=== PATIENT | male | born 1955 | race Two or more races ===

== ENCOUNTER 2017-01-16 19:52 | Emergency (ER) | payer BC ==
[2017-01-16] MEDS ORDERED: 0.9 % SODIUM CHLORIDE 1,000 ML BAG IV ONE (20:57)
[2017-01-16] MEDS ORDERED: PROMETHAZINE HCL 25 MG/ML VIAL IVP ONE (20:57)
[2017-01-16] MEDS ORDERED: HYDROMORPHONE HCL 1 MG/ML CPJ IVP ONE ×3 (20:57→23:32)
[2017-01-16 21:43] LABS: BASO % 0.2 % (0-6); EOS % 4.3 % (0-6); GRAN % 56.5 % (47-80); HEMATOCRIT 43.9 % (42.0-52.0); HEMOGLOBIN 14.7 gm/dl (14.0-18.0); MEAN CELL VOLUME 89.2 fl (81-97); MEAN CORPUSCULAR HEMOGLOBIN 29.9 pg (27-33); MEAN CORPUSCULAR HGB CONC 33.5 g/dl (32-36); MEAN PLATELET VOLUME 9.5 fl (7.4-10.4); PLATELET COUNT 239 K/uL (130-400); RED BLOOD COUNT 4.92 M/uL (4.40-5.70); RED CELL DISTRIBUTION WIDTH 12.5 % (11.5-14.5); WHITE BLOOD COUNT W/O DIFF 6.3 K/uL (4.2-12.2)
[2017-01-16 21:54] LABS: ANION GAP 9.2 (7-16); BLOOD UREA NITROGEN 11 mg/dL (9-20); CARBON DIOXIDE 28.8 mmol/L (22-30); CREATININE 0.8 mg/dL (0.66-1.25); EST GLOMERULAR FILTRATION RATE > 60 ml/min; GLUCOSE,RANDOM 129 mg/dL (70-110)
[2017-01-16] MEDS ORDERED: KETOROLAC 30 MG/ML VIAL IVP ONE (22:24)
--- NOTE | 2017-01-16 22:36 | Emergency Department Record ---
History of Present Illness - General Chief Complaint: Headache Migraine Stated Complaint: GOODMAN Time Seen by Provider: 01/16/17 20:17 Source: Patient Mode of Arrival: Ambulatory Limitations: No limitations - History of Present Illness Initial Comments: pt is having typical migraine. MD Complaint: "Migraine" Onset/Timin -: Days(s) Onset Description: Gradual Location: Diffuse Severity scale (1-10): 9 Quality: Similar to previous headaches Consistency: Constant Improves With: Nothing Worsens With: Light, Noise Associated Symptoms: Nausea, Photophobia, Sensitivity to sound Treatments Prior to Arrival: Migraine medication - Related Data Home Medications Medication Instructions Recorded Confirmed Last Taken Amlodipine Besylate #90 04/17/16 Unknown Ergocalciferol (Vitamin D2) #13 04/17/16 Unknown [Vitamin D2] Ezetimibe [Zetia] #90 04/17/16 Unknown Hydrocodone/Ibuprofen #60 04/17/16 Unknown [Hydrocodone-Ibuprofen 7.5-200] Omeprazole #90 04/17/16 Unknown Promethazine HCl [Phenergan] #120 04/17/16 Unknown Tramadol HCl #30 04/17/16 Unknown Allergies Allergy/AdvReac Type Severity Reaction Status Date / Time acetaminophen Allergy Severe ELEVATED Verified 01/16/17 20:18 LIVER ENZYMES Sulfa (Sulfonamide Allergy Severe HIVES Verified 01/16/17 20:18 Antibiotics) Travel Screening - Travel/Exposure Within Last 30 Days Have you traveled within the last 30 days?: No - Travel Symptoms Symptom Screening: None Review of Systems Reviewed: No additional complaints except as noted below Constitutional: Reports: As per HPI. Denies: Chills, Fever, Malaise, Night sweats, Weakness, Weight change Eyes: Reports: As per HPI. Denies: Eye discharge, Eye pain, Photophobia, Vision change ENT: Reports: As per HPI. Denies: Congestion, Dental pain, Ear pain, Epistaxis , Hearing loss, Throat pain Respiratory: Reports: As per HPI. Denies: Cough, Dyspnea, Hemoptysis, Stridor, Wheezes Cardiovascular: Reports: As per HPI. Denies: Arrhythmia, Chest pain, Dyspnea on exertion, Edema, Murmurs, Orthopnea, Palpitations, Paroxysmal nocturnal dyspnea, Rheumatic Fever, Syncope Endocrine: Reports: As per HPI. Denies: Fatigue, Heat or cold intolerance, Polydipsia, Polyuria Gastrointestinal: Reports: As per HPI. Denies: Abdominal pain, Constipation, Diarrhea, Hematemesis, Hematochezia, Melena, Nausea, Vomiting Genitourinary: Reports: As per HPI. Denies: Dysuria, Frequency, Hematuria, Incontinence, Retention, Testicular pain, Testicular mass, Urgency Musculoskeletal: Reports: As per HPI. Denies: Arthralgia, Back pain, Gout, Joint swelling, Myalgia, Neck pain Skin: Reports: As per HPI. Denies: Bruising, Change in color, Change in hair/ nails, Lesions, Pruritus, Rash Neurological: Reports: As per HPI. Denies: Abnormal gait, Confusion, Headache, Numbness, Paresthesias, Seizure, Tingling, Tremors, Vertigo, Weakness Psychiatric: Reports: As per HPI. Denies: Anxiety, Auditory hallucinations, Depression, Homicidal thoughts, Suicidal thoughts, Visual hallucinations Hematological/Lymphatic: Reports: As per HPI. Denies: Anemia, Blood Clots, Easy bleeding, Easy bruising, Swollen glands Past Medical History - SOCIAL HISTORY Smoking Status: Never smoker - CARDIOVASCULAR Hx Cardio Disorders: Yes Hx Hypertension: Yes - NEURO Hx Neuro Disorders: Yes Hx Headaches: Yes - GI Hx GI Disorders: Yes Hx Reflux: Yes Hx Liver Disease: (elevated Liver enzymes) - Hx Genitourinary Disorders: Yes Hx Kidney Stones: Yes - ENDOCRINE Hx Endocrine Disorders: No - MUSCULOSKELETAL Hx Musculoskeletal Disorders: Yes Hx Arthritis: Yes - PSYCH Hx Psych Problems: No - HEMATOLOGY/ONCOLOGY Hx Hematology/Oncology Disorders: No Family Medical History Any Significant Family History?: Yes Hx Cancer: Father Hx Diabetes: Mother Physical Exam - General General Appearance: Alert, Oriented x3, Cooperative, Mild distress - Head Head exam: Normal inspection - Eye Eye exam: Normal appearance, PERRL, EOMI Pupils: Normal accommodation - ENT ENT exam: Normal exam, Mucous membranes moist, Normal external ear exam, Normal orophraynx Ear exam: Normal external inspection. negative: External canal tenderness Nasal Exam: Normal inspection. negative: Discharge, Sinus tenderness Mouth exam: Normal external inspection, Tongue normal Teeth exam: Normal inspection. negative: Dental caries Throat exam: Normal inspection. negative: Tonsillar erythema, Tonsillar exudate - Neck Neck exam: Normal inspection, Full ROM. negative: Tenderness - Respiratory Respiratory exam: Normal lung sounds bilaterally. negative: Respiratory distress - Cardiovascular Cardiovascular Exam: Regular rate, Normal rhythm, Normal heart sounds - GI/Abdominal GI/Abdominal exam: Soft, Normal bowel sounds. negative: Tenderness - Rectal Rectal exam: Deferred - exam: Deferred - Extremities Extremities exam: Normal inspection, Full ROM, Normal capillary refill. negative: Tenderness - Back Back exam: Reports: Normal inspection, Full ROM. Denies: Muscle spasm, Rash noted, Tenderness - Neurological Neurological exam: Alert, CN II-XII intact, Normal gait, Oriented X3 - Psychiatric Psychiatric exam: Normal affect, Normal mood - Skin Skin exam: Dry, Intact, Normal color, Warm Course Vital Signs 01/16/17 01/16/17 20:18 22:22 Temperature 98.7 F Pulse Rate [ 72 68 Pulse Ox Probe] Respiratory 18 18 Rate Blood Pressure 149/105 [Left Arm] Blood Pressure 141/91 [Right Arm] Pulse Ox 98 94 L Medical Decision Making - Lab Data Result diagrams: 01/16/17 21:39 01/16/17 21:39 Lab Results 01/16/17 01/16/17 Range/Units 21:39 21:39 WBC 6.3 (4.2-12.2) K/uL RBC 4.92 (4.40-5.70) M/uL Hgb 14.7 (14.0-18.0) gm/dl Hct 43.9 (42.0-52.0) % MCV 89.2 (81-97) fl MCH 29.9 (27-33) pg MCHC 33.5 (32-36) g/dl RDW 12.5 (11.5-14.5) % Plt Count 239 (130-400) K/uL MPV 9.5 (7.4-10.4) fl Gran % 56.5 (47-80) % Lymphocytes % 30.0 (16-45) % Monocytes % 9.0 (0-9) % Eosinophils % 4.3 (0-6) % Basophils % 0.2 (0-6) % Sodium 139 (136-145) mmol/L Potassium 3.4 L (3.5-5.1) mmol/L Chloride 101 (98-107) mmol/L Carbon Dioxide 28.8 (22-30) mmol/L Anion Gap 9.2 (7-16) BUN 11 (9-20) mg/dL Creatinine 0.8 (0.66-1.25) mg/dL Estimated GFR > 60 ml/min Random Glucose 129 H (70-110) mg/dL Calcium 8.8 (8.5-10.1) mg/dL Disposition Disposition: Discharge Clinical Impression: Migraine Qualifiers: Migraine type: unspecified Status migrainosus presence: with status migrainosus Intractability: intractable Qualified Code(s): G43.911 - Migraine, unspecified, intractable, with status migrainosus Condition: (1) Good Instructions: Migraine Headache (ED) Additional Instructions: follow up with family doctor and with neurologist. return sooner if worse. Forms: Patient Portal Access
[2017-01-17] MEDS ORDERED: DIPHENHYDRAMINE HCL IV 50 MG/ML VIAL IVP ONE (00:22)
== END 2017-01-17 00:38 | disposition home or self-care (01) ==
LOC: ER 19:52
DX: G43.911 Migraine, unspecified, intractable, with status migrainosus (principal); R11.0 Nausea; H53.149 Visual discomfort, unspecified
CPT/HCPCS: 99284 ×2; 96376; 96374; 96375; 85025; 80048; 70450; J1885; J1170; J1200; J2550; J7030

== ENCOUNTER 2017-02-21 14:16 | Day surgery (SDC) | payer BC ==
[~2017-02-21 14:16] MED LIST: LIDOCAINE 2% MDV (20MG/ML) 20ML VIAL IV ONE; MIDAZOLAM HCL 2MG/2ML VIAL IV ONE; PROPOFOL 10 MG/ML VIAL IV ONE
--- NOTE | 2017-02-26 09:50 | Operative Note ---
DATE OF SURGERY: 02/21/2017 OPERATION: COLONOSCOPY with cold forceps polypectomy x2. PREOPERATIVE DIAGNOSIS: Colon polyps in followup. POSTOPERATIVE DIAGNOSES: 1. Internal and external hemorrhoids. 2. Ascending colon polyp. 3. Descending colon polyp. ESTIMATED BLOOD LOSS: Minimal. PREPARATION QUALITY: Good. COMPLICATIONS: None apparent. SPECIMENS: Ascending colon polyp and descending colon polyp. PROCEDURE: After informed consent was obtained from the patient, he was placed in the left lateral decubitus position in the endoscopy suite, sedated and monitored by the department of anesthesia. Digital rectal examination was unremarkable. A well-lubricated [id number] colonoscope was inserted into the rectum and advanced to the cecum. Preparation quality was good. The cecum, ileocecal valve, and appendiceal orifice were unremarkable. The ascending colon revealed a 4-5 mm polyp which was removed with a cold forceps. Minimal bleeding was noted. The remainder of the ascending colon and transverse colon were unremarkable. There was a 5 mm descending colon polyp identified and removed with a cold forceps. Minimal bleeding was noted. The remainder of the descending colon and sigmoid colon were unremarkable. Forward views of the rectum and anorectum were unremarkable. J-turn views revealed internal and external hemorrhoids. These were of moderate size. The endoscope was then straightened, the rectal ampulla deflated, and the endoscope was removed. RECOMMENDATIONS: The patient will require repeat exam in 3-5 years pending tissue histology. As always, thank you for allowing me to participate in the healthcare of your patients. CC: Dr. Amy HU
== END 2017-02-21 15:56 | disposition home or self-care (01) ==
LOC: HOP 14:16
PROVIDERS: ATTEND Internal Medicine Gastroenterology
DX: Z12.11 Encounter for screening for malignant neoplasm of colon (principal); D12.2 Benign neoplasm of ascending colon; D12.4 Benign neoplasm of descending colon; K64.4 Residual hemorrhoidal skin tags; K64.8 Other hemorrhoids; I10 Essential (primary) hypertension; E78.00 Pure hypercholesterolemia, unspecified

== ENCOUNTER 2017-10-29 19:11 | Emergency (ER) | payer BC ==
--- NOTE | 2017-10-29 19:36 | Emergency Department Record ---
History of Present Illness - General Chief Complaint: Back Pain/Injury Stated Complaint: LOWER BACK PAIN RADIATING DOWN BOTH LEGS Time Seen by Provider: 10/29/17 19:12 Source: Patient Mode of Arrival: Wheelchair Limitations: No limitations - History of Present Illness Initial Comments: 61 yo male presents to ED for evaluation of back pain symptoms and lower extremity weakness symptoms for the past 6 hours. Patient denies history of low back pain symptoms previously, denies injury. Patient denies numbness over the groin region or urinary retention symptoms. Patient denies history of previous back surgery, and denies history of IVDA. Patient reports recent URI symptoms with mild cough, denies health problems at his baseline. Onset/Timin -: Hour(s) Similar Symptoms Previously: Yes Place: Home Radiation: None Severity scale (1-10): 7 Quality: Aching Consistency: Constant Improves With: Supine Worsens With: Walking Context: Unknown Associated Symptoms: Cough, Difficulty walking, Weakness - Related Data Home Medications Medication Instructions Recorded Confirmed Last Taken Propranolol HCl [Inderal Xl] 80 mg PO DAILY 10/29/17 10/29/17 Unknown Allergies Allergy/AdvReac Type Severity Reaction Status Date / Time acetaminophen Allergy Severe ELEVATED Verified 01/16/17 20:18 LIVER ENZYMES Sulfa (Sulfonamide Allergy Severe HIVES Verified 01/16/17 20:18 Antibiotics) Travel Screening - Travel/Exposure Within Last 30 Days Have you traveled within the last 30 days?: No Review of Systems Constitutional: Denies: Chills, Fever, Malaise, Night sweats Eyes: Denies: Eye discharge, Eye pain ENT: Denies: Congestion, Ear pain, Epistaxis Respiratory: Reports: Cough. Denies: Dyspnea, Hemoptysis Cardiovascular: Denies: Chest pain, Dyspnea on exertion Endocrine: Denies: Fatigue, Heat or cold intolerance Gastrointestinal: Denies: Abdominal pain, Nausea, Vomiting Genitourinary: Denies: Incontinence, Retention Musculoskeletal: Reports: Back pain. Denies: Arthralgia, Gout, Joint swelling Skin: Denies: Bruising, Change in color Neurological: Reports: Weakness. Denies: Confusion, Headache, Numbness, Seizure , Tingling Psychiatric: Denies: Anxiety Hematological/Lymphatic: Denies: Anemia, Blood Clots Past Medical History - SOCIAL HISTORY Smoking Status: Never smoker Alcohol Use: None Drug Use: None - RESPIRATORY Hx Respiratory Disorders: Yes Hx Asthma: Yes (mild-uses inhaler) Hx Sleep Apnea: Yes Hx of CPAP: Yes - CARDIOVASCULAR Hx Cardio Disorders: Yes Hx Hypertension: Yes - NEURO Hx Neuro Disorders: Yes Hx Headaches: Yes Hx of Migraines: Yes - GI Hx GI Disorders: Yes Hx Reflux: Yes Hx Liver Disease: Yes (elevated Liver enzymes) Hx Rectal Bleeding: Yes (+ hemoccult) - Hx Genitourinary Disorders: Yes Hx Kidney Stones: Yes - ENDOCRINE Hx Endocrine Disorders: No - MUSCULOSKELETAL Hx Musculoskeletal Disorders: Yes Hx Arthritis: Yes - PSYCH Hx Psych Problems: No - HEMATOLOGY/ONCOLOGY Hx Hematology/Oncology Disorders: No Family Medical History Any Significant Family History?: Yes Hx Cancer: Father Hx Diabetes: Mother Physical Exam - General General Appearance: Alert, Oriented x3, Cooperative, Moderate distress Limitations: No limitations - Head Head exam: Atraumatic, Normocephalic, Normal inspection Head exam detail: negative: Abrasion, Contusion, Mauro's sign, General tenderness, Hematoma, Laceration - Eye Eye exam: Normal appearance. negative: Conjunctival injection, Periorbital swelling, Periorbital tenderness, Scleral icterus - ENT Ear exam: negative: Auricular hematoma, Auricular trauma Nasal Exam: negative: Active bleeding, Discharge, Dried blood, Foreign body Mouth exam: negative: Drooling, Laceration, Muffled voice, Tongue elevation - Neck Neck exam: Normal inspection. negative: Meningismus, Tenderness - Respiratory Respiratory exam: Normal lung sounds bilaterally. negative: Rales, Respiratory distress, Rhonchi, Stridor - Cardiovascular Cardiovascular Exam: Regular rate, Normal rhythm, Normal heart sounds - GI/Abdominal GI/Abdominal exam: Soft. negative: Rebound, Rigid, Tenderness - Rectal Rectal exam: Deferred - exam: Deferred - Extremities Extremities exam: Normal inspection. negative: Calf tenderness, Pedal edema, Tenderness - Back Back exam: Reports: Paraspinal tenderness (TTP in the midline of the lumbar spine). Denies: CVA tenderness (R), CVA tenderness (L) - Neurological Neurological exam: Alert, Motor sensory deficit (3+ strength bilateral EHL), Oriented X3 - Psychiatric Psychiatric exam: Normal affect, Normal mood - Skin Skin exam: Normal color. negative: Abrasion Type of lesion: negative: abrasion Course Vital Signs 10/29/17 19:13 Temperature 99.4 F Pulse Rate 95 H Respiratory 18 Rate Blood Pressure 156/122 Pulse Ox 99 - Reevaluation(s) Reevaluation #1: 10/29/17 19:35 Case was discussed [address] Dr. Larsen ([facility] ED), will accept patient for transfer and possible MRI given the patient's lower extremity weakness and back pain symptoms. Patient agrees with the plan as discussed. Disposition Disposition: Transfer Clinical Impression: Low back pain Qualifiers: Chronicity: acute Back pain laterality: unspecified Sciatica presence: without sciatica Qualified Code(s): M54.5 - Low back pain Lower extremity weakness Qualifiers: Laterality: unspecified laterality Qualified Code(s): R29.898 - Other symptoms and signs involving the musculoskeletal system Disposition: Acute Care Hospital Transfer Transfer To: [facility] Reason For Transfer: MRI, further evaluation Accepting Physician: Chava Time Discussed w/Accepting Physician: 19:36 Condition: (2) Stable Forms: Patient Portal Access Time of Disposition: 19:36 Quality - Quality Measures Quality Measures: N/A - Blood Pressure Screening Does Patient Have Any of the Following: No Blood Pressure Classification: Pre-Hypertensive BP Reading Systolic Measurement: 133 Diastolic Measurement: 84 Screening for High Blood Pressure: < Pre-Hypertensive BP, F/U Documented > [ [id number]] Pre-Hypertensive Follow-up Interventions: Referral to alternative/primary care provider.
[2017-10-29] MEDS ORDERED: ONDANSETRON HCL IV 4 MG/2 ML VIAL IVP ONE (19:39)
[2017-10-29] MEDS ORDERED: MORPHINE SULFATE 5 MG/ML PFS IVP ONE (19:39)
[2017-10-29] MEDS ORDERED: 0.9 % SODIUM CHLORIDE 1000ML 1,000 ML IV SCH (19:45)
[2017-10-29] MEDS ORDERED: FENTANYL PF 100MCG/2ML VIAL IVP ONE (20:10)
== END 2017-10-29 20:26 | disposition short-term general hospital (02) ==
LOC: ER 19:11
DX: M54.5 Low back pain (principal); R29.898 Other symptoms and signs involving the musculoskeletal system; R26.2 Difficulty in walking, not elsewhere classified; R05 Cough; I10 Essential (primary) hypertension
CPT/HCPCS: 99285 ×2; 96374; 96375; J2405; J3010; J2270; J7030

== ENCOUNTER 2018-06-08 11:52 | Observation (INO) | payer BC ==
--- NOTE | 2018-06-08 12:15 | Emergency Department Record ---
History of Present Illness - General Chief Complaint: Abdominal Pain Stated Complaint: LOWER ABD PAIN Time Seen by Provider: 06/08/18 12:09 Source: Patient Mode of Arrival: Ambulatory Limitations: No limitations - History of Present Illness Initial Comments: The patient is here due to the acute onset of lower AP for the last 2 hours. The pain is sharp, stabbing, and intermittent. He has been mildly nauseated with it but did not vomit. The patient also states he tried to have a BM but was not successful. Presently the pain is improving. He has no hx of similar issues and no hx of any abdominal surgeries. The patient also denied having any CP, SOB, or RUSSELL. MD Complaint: Abdominal pain Onset/Timin -: Hour(s) Location: Periumbilical Radiation: Suprapubic Severity: Moderate Quality: Aching Consistency: Constant, Intermittent Improves With: Nothing - Related Data Allergies Allergy/AdvReac Type Severity Reaction Status Date / Time acetaminophen Allergy Severe ELEVATED Verified 06/08/18 12:07 LIVER ENZYMES Sulfa (Sulfonamide Allergy Severe HIVES Verified 06/08/18 12:07 Antibiotics) Travel Screening - Travel/Exposure Within Last 30 Days Have you traveled within the last 30 days?: No - Travel/Exposure Within Last Year Have you traveled outside the [place] in the last year?: No - Additonal Travel Details Have you been exposed to anyone with a communicable illness?: No - Travel Symptoms Symptom Screening: None Review of Systems Constitutional: Denies: Chills, Fever Eyes: Denies: Eye discharge ENT: Denies: Congestion, Throat pain Respiratory: Denies: Cough, Dyspnea Cardiovascular: Denies: Arrhythmia Endocrine: Denies: Fatigue Gastrointestinal: Reports: Abdominal pain, Nausea. Denies: Diarrhea, Vomiting Genitourinary: Denies: Dysuria, Frequency Musculoskeletal: Denies: Arthralgia, Back pain Skin: Denies: Bruising Past Medical History - SOCIAL HISTORY Smoking Status: Never smoker Alcohol Use: Rare Drug Use: None - RESPIRATORY Hx Respiratory Disorders: Yes Hx Asthma: Yes (mild-uses inhaler) Hx Sleep Apnea: Yes Hx of CPAP: Yes - CARDIOVASCULAR Hx Cardio Disorders: Yes Hx Hypertension: Yes - NEURO Hx Neuro Disorders: Yes Hx Headaches: Yes Hx of Migraines: Yes - GI Hx GI Disorders: Yes Hx Reflux: Yes Hx Liver Disease: Yes (elevated Liver enzymes) Hx Rectal Bleeding: Yes (+ hemoccult) - Hx Genitourinary Disorders: Yes Hx Kidney Stones: Yes - ENDOCRINE Hx Endocrine Disorders: No - MUSCULOSKELETAL Hx Musculoskeletal Disorders: Yes Hx Arthritis: Yes - PSYCH Hx Psych Problems: No - HEMATOLOGY/ONCOLOGY Hx Hematology/Oncology Disorders: No Family Medical History Any Significant Family History?: Yes Hx Cancer: Father Hx Diabetes: Mother Physical Exam - General General Appearance: Alert, Oriented x3, Cooperative, No acute distress - Head Head exam: Atraumatic, Normocephalic, Normal inspection - Eye Eye exam: Normal appearance, PERRL, EOMI - Neck Neck exam: Normal inspection, Full ROM. negative: Tenderness - Respiratory Respiratory exam: Normal lung sounds bilaterally. negative: Respiratory distress - Cardiovascular Cardiovascular Exam: Regular rate, Normal rhythm, Normal heart sounds - GI/Abdominal GI/Abdominal exam: Soft, Normal bowel sounds, Tenderness (There is mild lower midline abdominal tenderness but the abdomen is very soft.). negative: Hernia, Rebound, Rigid - exam: Normal inspection. negative: Circumcision, Scrotal swelling, Testicular tenderness - Extremities Extremities exam: Normal inspection, Full ROM, Normal capillary refill. negative: Tenderness Image of Full Body: 1 - Area of pain and tenderness. - Neurological Neurological exam: Alert. negative: Motor sensory deficit Course Vital Signs 06/08/18 06/08/18 11:53 12:12 Temperature 97.5 F L Pulse Rate [ 64 Pulse Ox Probe] Respiratory 16 Rate Blood Pressure 142/81 [Right Arm] Pulse Ox 99 - Reevaluation(s) Reevaluation #1: The patient is still having some lower AP but it is improved. On exam his abdomen is soft with mild to moderate tenderness in the midline below his umbilicus. I did discuss the lab and CT results with the patient and did recommend a short stay admission due to the pain and he did agree. I then did discuss the case with Dr. Marcus and she did accept the patient for admission. Additionally I did discuss the case with Dr. Gilman (Gen Surg) and he will consult tomorrow if needed. 06/08/18 14:31 Medical Decision Making - Data Complexity MDM Data: Labs Ordered and/or Reviewed, X-Ray Ordered and/or Reviewed - Lab Data Result diagrams: 06/08/18 12:12 06/08/18 12:12 - Radiology Data Radiology results: Report reviewed (CT: Neg for any acute abnormalities.) Disposition Disposition: Admit Clinical Impression: Abdominal pain Qualifiers: Abdominal location: unspecified location Qualified Code(s): R10.9 - Unspecified abdominal pain Disposition: Still a Patient at [facility] Decision to Admit: Admit from ER Decision to Admit Date: 06/08/18 Decision to Admit Time: 14:33 Accepting Physician: Palmer Time Discussed w/Accepting Physician: 14:34 Condition: (2) Stable Instructions: Abdominal Pain (ED) Forms: Patient Portal Access Time of Disposition: 14:34 Quality - Quality Measures Quality Measures: N/A - Blood Pressure Screening View Details: Yes Does Patient Have Any of the Following: Active Dx of HTN Blood Pressure Classification: Hypertensive Reading Systolic Measurement: 154 Diastolic Measurement: 101 Screening for High Blood Pressure: Patient Exclusion, Hx of HTN [G9744]
[2018-06-08] MEDS ORDERED: ONDANSETRON HCL IV 4 MG/2 ML VIAL IV ONE (12:16)
[2018-06-08] MEDS ORDERED: MORPHINE SULFATE 10 MG/ML VIAL IVP ONE ×2 (12:16→13:39)
[2018-06-08] MEDS ORDERED: SODIUM CHLORIDE 0.9% 500 ML IV ONE (12:16)
[2018-06-08 12:24] LABS: BASO % 0.2 % (0-6); EOS % 2.7 % (0-6); GRAN % 68.2 % (47-80); HEMATOCRIT 46.7 % (42.0-52.0); HEMOGLOBIN 16.1 gm/dl (14.0-18.0); LYMPH % 20.4 % (16-45); MEAN CELL VOLUME 88.1 fl (81-97); MEAN CORPUSCULAR HEMOGLOBIN 30.4 pg (27-33); MEAN CORPUSCULAR HGB CONC 34.5 g/dl (32-36); MEAN PLATELET VOLUME 9.7 fl (7.4-10.4); MONO % 8.5 % (0-9); PLATELET COUNT 295 K/uL (130-400); RED CELL DISTRIBUTION WIDTH 12.6 % (11.5-14.5)
[2018-06-08 12:37] LABS: BLOOD UREA NITROGEN 25 mg/dL (8-23); CREATININE 1.2 mg/dL (0.7-1.2); EST GLOMERULAR FILTRATION RATE > 60 mL/min; TOTAL PROTEIN 8.3 g/dL (6.6-8.7)
[2018-06-08 12:39] LABS: GLUCOSE,RANDOM 152 mg/dL (74-109)
[2018-06-08 12:42] LABS: ALBUMIN 4.8 g/dL (4.0-5.0); ALKALINE PHOSPHATASE 79 U/L (40-129); ALT/SGPT 33 U/L (<41); AST/SGOT 37 U/L (10.0-50.0); BILIRUBIN,DIRECT 0.3 mg/dL (0-0.3); LIPASE 56 U/L (13-60)
[2018-06-08 13:39] LABS: URINE APPEARANCE CLEAR; URINE BILIRUBIN NEGATIVE (NEGATIVE); URINE BLOOD NEGATIVE (NEGATIVE); URINE COLOR YELLOW; URINE GLUCOSE (UA) NEGATIVE (NEGATIVE); URINE KETONE NEGATIVE (NEGATIVE); URINE LEUKOCYTE ESTERASE NEGATIVE (NEGATIVE); URINE NITRITE NEGATIVE (NEGATIVE); URINE PROTEIN NEGATIVE (NEGATIVE); URINE UROBILINOGEN 0.2 E.U./dL (0.20 - 1.00)
[2018-06-08] MEDS ORDERED: POTASSIUM CHLORIDE 20 MEQ TABLET PO ONE (14:12)
[2018-06-08] MEDS ORDERED: LIDOCAINE 2% MDV (20MG/ML) 20ML VIAL IV ONE (15:35)
[2018-06-08] MEDS ORDERED: FENTANYL PF 100MCG/2ML VIAL IV ONE (15:35)
[2018-06-08] MEDS ORDERED: PROPOFOL 10 MG/ML VIAL IV ONE (15:35)
--- NOTE | 2018-06-08 16:08 | Emergency Department Record ---
History of Present Illness - General Chief Complaint: Abdominal Pain Stated Complaint: LOWER ABD PAIN Time Seen by Provider: 06/08/18 12:09 Source: Patient Mode of Arrival: Ambulatory Limitations: No limitations - History of Present Illness MD Complaint: Abdominal pain Onset/Timin -: Hour(s) Location: Periumbilical Radiation: Suprapubic Severity: Moderate Quality: Aching Consistency: Constant, Intermittent Improves With: Nothing - Related Data Allergies Allergy/AdvReac Type Severity Reaction Status Date / Time acetaminophen Allergy Severe ELEVATED Verified 06/08/18 12:07 LIVER ENZYMES Sulfa (Sulfonamide Allergy Severe HIVES Verified 06/08/18 12:07 Antibiotics) Travel Screening - Travel/Exposure Within Last 30 Days Have you traveled within the last 30 days?: No - Travel/Exposure Within Last Year Have you traveled outside the [place] in the last year?: No - Additonal Travel Details Have you been exposed to anyone with a communicable illness?: No - Travel Symptoms Symptom Screening: None Review of Systems Constitutional: Denies: Chills, Fever Eyes: Denies: Eye discharge ENT: Denies: Congestion, Throat pain Respiratory: Denies: Cough, Dyspnea Cardiovascular: Denies: Arrhythmia Endocrine: Denies: Fatigue Gastrointestinal: Reports: Abdominal pain, Nausea. Denies: Diarrhea, Vomiting Genitourinary: Denies: Dysuria, Frequency Musculoskeletal: Denies: Arthralgia, Back pain Skin: Denies: Bruising Past Medical History - SOCIAL HISTORY Smoking Status: Never smoker Alcohol Use: Rare Drug Use: None - RESPIRATORY Hx Respiratory Disorders: Yes Hx Asthma: Yes (mild-uses inhaler) Hx Sleep Apnea: Yes Hx of CPAP: Yes - CARDIOVASCULAR Hx Cardio Disorders: Yes Hx Hypertension: Yes - NEURO Hx Neuro Disorders: Yes Hx Headaches: Yes Hx of Migraines: Yes - GI Hx GI Disorders: Yes Hx Reflux: Yes Hx Liver Disease: Yes (elevated Liver enzymes) Hx Rectal Bleeding: Yes (+ hemoccult) - Hx Genitourinary Disorders: Yes Hx Kidney Stones: Yes - ENDOCRINE Hx Endocrine Disorders: No - MUSCULOSKELETAL Hx Musculoskeletal Disorders: Yes Hx Arthritis: Yes - PSYCH Hx Psych Problems: No - HEMATOLOGY/ONCOLOGY Hx Hematology/Oncology Disorders: No Family Medical History Any Significant Family History?: Yes Hx Cancer: Father Hx Diabetes: Mother Physical Exam - General Limitations: No limitations Course Vital Signs 06/08/18 06/08/18 06/08/18 11:53 12:12 13:41 Temperature 97.5 F L Pulse Rate [ 64 65 Pulse Ox Probe] Respiratory 16 16 Rate Blood Pressure 142/81 153/97 [Right Arm] Pulse Ox 99 96 06/08/18 14:51 Temperature 98.1 F Pulse Rate [ 68 Pulse Ox Probe] Respiratory 16 Rate Blood Pressure 154/101 [Right Arm] Pulse Ox 100 Medical Decision Making - Data Complexity MDM Data: EKG Ordered and/or Reviewed - Lab Data Result diagrams: 06/08/18 12:12 06/08/18 12:12 Lab Results 06/08/18 06/08/18 06/08/18 Range/Units 12:12 12:12 12:16 WBC 9.0 (4.2-12.2) K/uL RBC 5.30 (4.40-5.70) M/uL Hgb 16.1 (14.0-18.0) gm/dl Hct 46.7 (42.0-52.0) % MCV 88.1 (81-97) fl MCH 30.4 (27-33) pg MCHC 34.5 (32-36) g/dl RDW 12.6 (11.5-14.5) % Plt Count 295 (130-400) K/uL MPV 9.7 (7.4-10.4) fl Gran % 68.2 (47-80) % Lymphocytes % 20.4 (16-45) % Monocytes % 8.5 (0-9) % Eosinophils % 2.7 (0-6) % Basophils % 0.2 (0-6) % Sodium 138 (136-145) mmol/L Potassium 3.1 L (3.4-4.5) mmol/L Chloride 92 L (98-107) mmol/L Carbon Dioxide 30.0 H (22-29) mmol/L Anion Gap 16.0 (7-16) BUN 25 H (8-23) mg/dL Creatinine 1.2 (0.7-1.2) mg/dL Estimated GFR > 60 mL/min Random Glucose 152 H (74-109) mg/dL Lactic Acid (0.5-2.2) mmol/L Calcium 9.7 (8.8-10.2) mg/dL Total Bilirubin 1.50 H (0.2-1.0) mg/dL Direct Bilirubin 0.3 (0-0.3) mg/dL AST 37 (10.0-50.0) U/L ALT 33 (<41) U/L Alkaline Phosphatase 79 (40-129) U/L Total Protein 8.3 (6.6-8.7) g/dL Albumin 4.8 (4.0-5.0) g/dL Lipase 56 (13-60) U/L Urine Color Yellow Urine Appearance Clear Urine pH 7.0 (5.0-8.0) Ur Specific [place] 1.010 (1.002-1.030) Urine Protein Negative (NEGATIVE) Urine Glucose (UA) Negative (NEGATIVE) Urine Ketones Negative (NEGATIVE) Urine Blood Negative (NEGATIVE) Urine Nitrite Negative (NEGATIVE) Urine Bilirubin Negative (NEGATIVE) Urine Urobilinogen 0.2 (0.20 - 1.00) E.U./dL Ur Leukocyte Esterase Negative (NEGATIVE) 06/08/18 Range/Units 14:42 WBC (4.2-12.2) K/uL RBC (4.40-5.70) M/uL Hgb (14.0-18.0) gm/dl Hct (42.0-52.0) % MCV (81-97) fl MCH (27-33) pg MCHC (32-36) g/dl RDW (11.5-14.5) % Plt Count (130-400) K/uL MPV (7.4-10.4) fl Gran % (47-80) % Lymphocytes % (16-45) % Monocytes % (0-9) % Eosinophils % (0-6) % Basophils % (0-6) % Sodium (136-145) mmol/L Potassium (3.4-4.5) mmol/L Chloride (98-107) mmol/L Carbon Dioxide (22-29) mmol/L Anion Gap (7-16) BUN (8-23) mg/dL Creatinine (0.7-1.2) mg/dL Estimated GFR mL/min Random Glucose (74-109) mg/dL Lactic Acid 0.9 (0.5-2.2) mmol/L Calcium (8.8-10.2) mg/dL Total Bilirubin (0.2-1.0) mg/dL Direct Bilirubin (0-0.3) mg/dL AST (10.0-50.0) U/L ALT (<41) U/L Alkaline Phosphatase (40-129) U/L Total Protein (6.6-8.7) g/dL Albumin (4.0-5.0) g/dL Lipase (13-60) U/L Urine Color Urine Appearance Urine pH (5.0-8.0) Ur Specific [place] (1.002-1.030) Urine Protein (NEGATIVE) Urine Glucose (UA) (NEGATIVE) Urine Ketones (NEGATIVE) Urine Blood (NEGATIVE) Urine Nitrite (NEGATIVE) Urine Bilirubin (NEGATIVE) Urine Urobilinogen (0.20 - 1.00) E.U./dL Ur Leukocyte Esterase (NEGATIVE) - EKG Data -: EKG Interpreted by Nh EKG: Abnormal EKG (NSR at 68, atypical RBBB, LVH. Neg for any ischemia.) Disposition Clinical Impression: Abdominal pain Qualifiers: Abdominal location: unspecified location Qualified Code(s): R10.9 - Unspecified abdominal pain Disposition: Still a Patient at [facility] Condition: (2) Stable Quality - Quality Measures Quality Measures: N/A - Blood Pressure Screening View Details: Yes Does Patient Have Any of the Following: Active Dx of HTN Blood Pressure Classification: Hypertensive Reading Systolic Measurement: 154 Diastolic Measurement: 101 Screening for High Blood Pressure: Patient Exclusion, Hx of HTN [[id number]]
[2018-06-08] MEDS ORDERED: ONDANSETRON HCL IV 4 MG/2 ML VIAL IVP PRN (16:16)
[2018-06-08] MEDS ORDERED: POTASSIUM CHLORIDE/D5-0.9%NACL 20 MEQ/1,000 ML BAG IV ONE (16:16)
[2018-06-08] MEDS: HYDROMORPHONE HCL 2 MG/ML VIAL IVP PRN ×2 (16:30→20:37)
[2018-06-08] MEDS ORDERED: DICYCLOMINE HCL 10 MG CAPSULE PO ONE (18:10)
[2018-06-08] MEDS ORDERED: MORPHINE SULFATE 15 MG TABLET.ER PO SCH (18:15)
[2018-06-08] MEDS: PANTOPRAZOLE SODIUM IV 40 MG VIAL IV SCH (18:22)
[2018-06-09] MEDS: HYDROMORPHONE HCL 2 MG/ML VIAL IVP PRN (00:20)
[2018-06-09] MEDS ORDERED: MORPHINE SULFATE 15 MG TABLET.ER PO ONE (02:00)
[2018-06-09] MEDS ORDERED: IBUPROFEN 400 MG TABLET PO PRN (02:03)
[2018-06-09] MEDS ORDERED: NALOXONE 0.4 MG/1 ML VIAL IVP PRN (02:04)
[2018-06-09 05:04] LABS: BASO % 0.2 % (0-6); EOS % 1.9 % (0-6); GRAN % 75.8 % (47-80); HEMATOCRIT 40.9 % (42.0-52.0); HEMOGLOBIN 14.1 gm/dl (14.0-18.0); LYMPH % 15.3 % (16-45); MEAN CORPUSCULAR HEMOGLOBIN 30.3 pg (27-33); MEAN CORPUSCULAR HGB CONC 34.5 g/dl (32-36); MEAN PLATELET VOLUME 9.5 fl (7.4-10.4); MONO % 6.8 % (0-9); PLATELET COUNT 214 K/uL (130-400); RED BLOOD COUNT 4.65 M/uL (4.40-5.70); RED CELL DISTRIBUTION WIDTH 12.2 % (11.5-14.5); WHITE BLOOD COUNT W/O DIFF 6.3 K/uL (4.2-12.2)
[2018-06-09 05:21] LABS: ALB/GLOB RATIO 1.2 (1.1-1.8); ALBUMIN 3.7 g/dL (4.0-5.0); ALKALINE PHOSPHATASE 66 U/L (40-129); ALT/SGPT 27 U/L (<41); AST/SGOT 27 U/L (10.0-50.0); BLOOD UREA NITROGEN 10 mg/dL (8-23); CREATININE 0.6 mg/dL (0.7-1.2); EST GLOMERULAR FILTRATION RATE > 60 mL/min; GLUCOSE,RANDOM 120 mg/dL (74-109); LIPASE 38 U/L (13-60); TOTAL PROTEIN 6.7 g/dL (6.6-8.7)
[2018-06-09] MEDS: PANTOPRAZOLE SODIUM IV 40 MG VIAL IV SCH (09:57)
[2018-06-09] MEDS ORDERED: AMLODIPINE BESYLATE 5MG TAB PO SCH (10:00)
[2018-06-09] MEDS ORDERED: PROPRANOLOL HCL 10 MG TABLET PO SCH (10:00)
[2018-06-09] MEDS ORDERED: PROPRANOLOL HCL 80 MG PO SCH (10:00)
--- NOTE | 2018-06-09 10:02 | History & Physical ---
History of Present Illness - Date of Service Date of Service for History & Physical: 06/09/18 - History of Present Illness Admitting Diagnosis: 1. Lower AP History of Present Illness: PMH: Reflux, Hypertension, Asthma, Sleep Apnea, Migraines, Arthritis, Kidney Stones Patient is a 62 year old male who presented to the ED on 06/08/18 complaining of severe acute lower abdominal pain. He described the pain as sudden onset of a sharp, stabbing pain in his lower abdomen a few hours earlier. He also feels his abdomen is somewhat bloated. Patient rates pain as a 9/10 and says that just prior to coming to the ED, the pain was so intense he was diaphoretic and that he had an episode of syncope, prompting him to come in. He also states that he is nauseated, although he denies vomiting. Denies constipation or diarrhea. Stool is formed, brown NBNB. Nothing has helped his pain, except laying down which provides some small relief. He has never had an episode like this before. Vitals: WNL upon admission. EKG:RBBB otherwise wnl. Labs: trops neg, CBC wnl, K+ low, bilirubin elevated. UA wnl. Imaging: CT negative for abnormalities except small renal calculi that are non- obstructing. Pt required several doses of morphine overnight 2/2 to severe pain. 06/09/18: Patient states that his pain is much better now, currently is 3/10. He states that while the morphine yesterday did not relieve his symptoms, he started to feel better around 4am this morning and has continued to improve. He states that he thinks it is possible that his pain was due to trapped gas. He also admits to early satiety for the past few months. States that he has also lost roughly 20 lb's because of the early satiety and decreased appetite. Had colonoscopy last year and found polyps but no other abnormalities. Travel Screening - Travel/Exposure Within Last 30 Days Have you traveled within the last 30 days?: Yes Location Detail:: [place], [place] - Travel/Exposure Within Last Year Have you traveled outside the [place] in the last year?: Yes Location Detail:: [place] - Additonal Travel Details Have you been exposed to anyone with a communicable illness?: No - Travel Symptoms Symptom Screening: None Review of Systems Constitutional: Reports: Weight change. Denies: Chills, Fever, Malaise Eyes: Denies: Vision change ENT: Denies: Congestion, Dental pain, Ear pain, Throat pain Respiratory: Denies: Cough, Dyspnea, Wheezes Cardiovascular: Reports: As per HPI, Syncope. Denies: Arrhythmia, Chest pain, Edema, Palpitations Endocrine: Denies: Fatigue Gastrointestinal: Reports: Abdominal pain, Nausea. Denies: Constipation, Diarrhea, Hematemesis, Hematochezia, Melena, Vomiting Genitourinary: Denies: Dysuria, Frequency, Retention, Testicular pain, Urgency Musculoskeletal: Denies: Back pain Skin: Denies: Rash Neurological: Denies: Confusion, Headache Past Medical History - SOCIAL HISTORY Smoking Status: Never smoker Alcohol Use: Rare, Occasional Drug Use: None - RESPIRATORY Hx Respiratory Disorders: Yes Hx Asthma: Yes (mild-uses inhaler) Hx Sleep Apnea: Yes Hx of CPAP: Yes - CARDIOVASCULAR Hx Cardio Disorders: Yes Hx Hypertension: Yes - NEURO Hx Neuro Disorders: Yes Hx Headaches: Yes Hx of Migraines: Yes - GI Hx GI Disorders: Yes Hx Reflux: Yes Hx Liver Disease: Yes (elevated Liver enzymes) Hx Rectal Bleeding: Yes (+ hemoccult) - Hx Genitourinary Disorders: Yes Hx Kidney Stones: Yes - ENDOCRINE Hx Endocrine Disorders: No - MUSCULOSKELETAL Hx Musculoskeletal Disorders: Yes Hx Arthritis: Yes - PSYCH Hx Psych Problems: No - HEMATOLOGY/ONCOLOGY Hx Hematology/Oncology Disorders: No Family Medical History Any Significant Family History?: Yes Hx Cancer: Father Hx Diabetes: Mother H&P Meds/Allergies - Allergies Allergies: Allergies Allergy/AdvReac Type Severity Reaction Status Date / Time acetaminophen Allergy Severe ELEVATED Verified 06/08/18 12:07 LIVER ENZYMES Sulfa (Sulfonamide Allergy Severe HIVES Verified 06/08/18 12:07 Antibiotics) - Active Medications Active Medications: Current Medications Amlodipine Besylate (Norvasc) 5 mg PO DAILY [facility] Ibuprofen (Motrin 400mg) 800 mg PO Q8H PRN PRN Reason: PAIN - MILD TO MODERATE (1-7) Naloxone HCl (Narcan) 0.4 mg IVP ONCE PRN PRN Reason: altered mental status Ondansetron HCl (Zofran) 4 mg IVP Q4H PRN PRN Reason: NAUSEA Last Admin: 06/08/18 20:31 Dose: 4 mg Pantoprazole Sodium (Protonix Iv) 40 mg IV DAILY JOE Last Admin: 06/08/18 18:22 Dose: 40 mg Propranolol HCl (Inderal) 40 mg PO BID [facility] Physical Exam - Vital Signs Vital Signs: Vital Signs - Last 24 Hrs Temp Pulse Resp BP Pulse Ox 06/09/18 09:33 98.8 F 84 16 129/92 95 06/09/18 06:00 98.1 F 80 18 128/89 95 06/08/18 23:47 98.1 F 71 18 146/95 96 06/08/18 20:00 98.1 F 74 18 146/86 98 06/08/18 18:16 98.1 F 68 18 156/93 95 06/08/18 17:01 68 18 06/08/18 16:15 98.2 F 68 18 166/110 98 06/08/18 14:51 98.1 F 68 16 154/101 100 06/08/18 13:41 65 16 153/97 96 06/08/18 12:12 64 16 142/81 99 06/08/18 11:53 97.5 F L - General General Appearance: Alert, Oriented x3, Cooperative, No acute distress Limitations: No limitations - Head Head exam: Atraumatic, Normocephalic, Normal inspection Head exam detail: negative: CSF rhinorrhea, Laceration - Eye Eye exam: Normal appearance, PERRL, EOMI - ENT ENT exam: Normal exam, Normal orophraynx Nasal Exam: Normal inspection. negative: Discharge Mouth exam: Normal external inspection, Tongue normal Teeth exam: Normal inspection Throat exam: Normal inspection. negative: Tonsillar erythema - Neck Neck exam: Normal inspection, Full ROM. negative: Tenderness - Respiratory Respiratory exam: Normal lung sounds bilaterally. negative: Decreased breath sounds, Respiratory distress, Wheezes - Cardiovascular Cardiovascular Exam: Regular rate, Normal rhythm, Normal heart sounds Peripheral Pulses: 2+: Radial (R), Radial (L) - GI/Abdominal GI/Abdominal exam: Soft, Normal bowel sounds, Tenderness (LLQ tenderness and suprapubic tenderness on palpation. Soft, non-distended). negative: Distended, Guarding, Hernia, Rebound, Rigid - Rectal Rectal exam: Deferred - exam: Deferred - Extremities Extremities exam: Normal inspection, Full ROM. negative: Pedal edema, Tenderness - Back Back exam: Reports: Full ROM - Neurological Neurological exam: Alert, Oriented X3. negative: Motor sensory deficit - Psychiatric Psychiatric exam: Normal affect, Normal mood. negative: Agitated, Anxious - Skin Skin exam: Dry, Intact. negative: Cyanosis, Diaphoretic, Rash Results - Labs Result Diagrams: 06/09/18 04:45 06/09/18 04:45 Labs Last 24 Hours: Laboratory Results - last 24 hr 06/08/18 06/08/18 06/08/18 12:12 12:12 12:16 WBC 9.0 RBC 5.30 Hgb 16.1 Hct 46.7 MCV 88.1 MCH 30.4 MCHC 34.5 RDW 12.6 Plt Count 295 MPV 9.7 Gran % 68.2 Lymphocytes % 20.4 Monocytes % 8.5 Eosinophils % 2.7 Basophils % 0.2 Sodium 138 Potassium 3.1 L Chloride 92 L Carbon Dioxide 30.0 H Anion Gap 16.0 BUN 25 H Creatinine 1.2 Estimated GFR > 60 Random Glucose 152 H Lactic Acid Calcium 9.7 Total Bilirubin 1.50 H Direct Bilirubin 0.3 AST 37 ALT 33 Alkaline Phosphatase 79 Troponin T Total Protein 8.3 Albumin 4.8 Globulin Albumin/Globulin Ratio Lipase 56 Urine Color Yellow Urine Appearance Clear Urine pH 7.0 Ur Specific [place] 1.010 Urine Protein Negative Urine Glucose (UA) Negative Urine Ketones Negative Urine Blood Negative Urine Nitrite Negative Urine Bilirubin Negative Urine Urobilinogen 0.2 Ur Leukocyte Esterase Negative 06/08/18 06/08/18 06/09/18 14:42 21:32 04:45 WBC 6.3 RBC 4.65 Hgb 14.1 Hct 40.9 L MCV 88.0 MCH 30.3 MCHC 34.5 RDW 12.2 Plt Count 214 MPV 9.5 Gran % 75.8 Lymphocytes % 15.3 L Monocytes % 6.8 Eosinophils % 1.9 Basophils % 0.2 Sodium Potassium Chloride Carbon Dioxide Anion Gap BUN Creatinine Estimated GFR Random Glucose Lactic Acid 0.9 Calcium Total Bilirubin Direct Bilirubin AST ALT Alkaline Phosphatase Troponin T < 0.010 Total Protein Albumin Globulin Albumin/Globulin Ratio Lipase Urine Color Urine Appearance Urine pH Ur Specific [place] Urine Protein Urine Glucose (UA) Urine Ketones Urine Blood Urine Nitrite Urine Bilirubin Urine Urobilinogen Ur Leukocyte Esterase 06/09/18 06/09/18 06/09/18 04:45 06:00 09:11 WBC RBC Hgb Hct MCV MCH MCHC RDW Plt Count MPV Gran % Lymphocytes % Monocytes % Eosinophils % Basophils % Sodium 137 Cancelled Potassium 3.3 L Cancelled Chloride 96 L Cancelled Carbon Dioxide 27.0 Cancelled Anion Gap 14.0 Cancelled BUN 10 Cancelled Creatinine 0.6 L Cancelled Estimated GFR > 60 Cancelled Random Glucose 120 H Cancelled Lactic Acid Calcium 8.6 L Cancelled Total Bilirubin 1.20 H Cancelled Direct Bilirubin AST 27 Cancelled ALT 27 Cancelled Alkaline Phosphatase 66 Cancelled Troponin T < 0.010 Cancelled Total Protein 6.7 Cancelled Albumin 3.7 L Cancelled Globulin 3.0 Cancelled Albumin/Globulin Ratio 1.2 Cancelled Lipase 38 Cancelled Urine Color Urine Appearance Urine pH Ur Specific [place] Urine Protein Urine Glucose (UA) Urine Ketones Urine Blood Urine Nitrite Urine Bilirubin Urine Urobilinogen Ur Leukocyte Esterase VTE H&P Assessment - Risk for VTE Risk for VTE: Yes Risk Level: Moderate (SCD's recommended) Risk Assessment Date: 06/09/18 Risk Assessment Time: 11:23 VTE Orders Placed or Will Be Placed: Yes Plan - Detailed Diagnosis and Plan (1) Abdominal pain Current Visit: Yes Status: Acute Qualifiers: Abdominal location: unspecified location Qualified Code(s): R10.9 - Unspecified abdominal pain Base Code: R10.9 - UNSPECIFIED ABDOMINAL PAIN Comment: 06/09/2018: - Unclear etiology at this time. - CT negative for any correlating abnormality. - Bladder scan negative for retention of fluid. - UA and labs unremarkable except low K+ and elevated bili. - D/C'd narcotics given that pain level has reduced. - Ibuprofen PRN pain. - Protonix IV 40mg daily. - Gas -X 80mg TID. - Pt states that he gets elevated liver enzymes when he takes tylenol. - Surgery C/S'd and do not recommend surgical intervention. - GI consult for further evaluation. (2) HTN, goal below 150/90 Current Visit: Yes Status: Acute Base Code: I10 - ESSENTIAL (PRIMARY) HYPERTENSION Comment: 06/09/18: - Continue home medications as prescribed. (3) Full code status Current Visit: Yes Status: Acute Base Code: Z78.9 - OTHER SPECIFIED HEALTH STATUS Comment: 06/09/18: Patient is full code status this admission. - Disposition Home pending adequate pain control and GI c/s recs.
[2018-06-09] MEDS ORDERED: SIMETHICONE 80 MG TAB.CHEW PO SCH (16:00)
--- NOTE | 2018-06-09 16:04 | Discharge Summary ---
Providers Discharge Summary Date: 06/09/18 Date of admission: 06/08/18 15:34 Expected Date of Discharge: 06/09/18 Attending physician: ELIUD ALEXANDER Primary care physician: KIA HARRIS M.D. Consults: Consult Orders 06/08/18 14:30 Consult NOW Consulting Provider: Juan J Gilman Physician Instructions: Please eval for lower AP Reason For Exam: lower AP 06/09/18 08:58 Consult NOW Consulting Provider: PARVIN PAEZ Physician Instructions: Reason For Exam: abdominal pain 06/09/18 11:07 Consult NOW Consulting Provider: PARVIN PAEZ Physician Instructions: Reason For Exam: early satiety/weight loss/LLQ and suprapubic pain Physical Exam - Vital Signs Vital Signs: Vital Signs - Last 24 Hrs Temp Pulse Resp BP Pulse Ox 06/09/18 14:50 98.1 F 71 16 115/82 97 06/09/18 12:45 99.0 F 73 16 120/81 94 L 06/09/18 09:33 98.8 F 84 16 129/92 95 06/09/18 06:00 98.1 F 80 18 128/89 95 06/08/18 23:47 98.1 F 71 18 146/95 96 06/08/18 20:00 98.1 F 74 18 146/86 98 06/08/18 18:16 98.1 F 68 18 156/93 95 06/08/18 17:01 68 18 06/08/18 16:15 98.2 F 68 18 166/110 98 - General General Appearance: Alert, Oriented x3, Cooperative, No acute distress Limitations: No limitations - Head Head exam: Atraumatic, Normocephalic, Normal inspection Head exam detail: negative: CSF rhinorrhea, Laceration - Eye Eye exam: Normal appearance, PERRL, EOMI - ENT ENT exam: Normal exam, Normal orophraynx Nasal Exam: Normal inspection. negative: Discharge Mouth exam: Normal external inspection, Tongue normal Teeth exam: Normal inspection Throat exam: Normal inspection. negative: Tonsillar erythema - Neck Neck exam: Normal inspection, Full ROM. negative: Tenderness - Respiratory Respiratory exam: Normal lung sounds bilaterally. negative: Decreased breath sounds, Respiratory distress, Wheezes - Cardiovascular Cardiovascular Exam: Regular rate, Normal rhythm, Normal heart sounds Peripheral Pulses: 2+: Radial (R), Radial (L) - GI/Abdominal GI/Abdominal exam: Soft, Normal bowel sounds, Tenderness (LLQ tenderness and suprapubic tenderness on palpation. Soft, non-distended). negative: Distended, Guarding, Hernia, Rebound, Rigid - Rectal Rectal exam: Deferred - exam: Deferred - Extremities Extremities exam: Normal inspection, Full ROM. negative: Pedal edema, Tenderness - Back Back exam: Reports: Full ROM - Neurological Neurological exam: Alert, Oriented X3. negative: Motor sensory deficit - Psychiatric Psychiatric exam: Normal affect, Normal mood. negative: Agitated, Anxious - Skin Skin exam: Dry, Intact. negative: Cyanosis, Diaphoretic, Rash Hospitalization - Hospitalization Admission Diagnosis: 1. Lower AP - Problem List/Discharge Diagnosis (1) Abdominal pain Current Visit: Yes Status: Acute Discharge Diagnosis: Abdominal location: unspecified location Qualified Code(s): R10.9 - Unspecified abdominal pain Base Code: R10.9 - UNSPECIFIED ABDOMINAL PAIN Comment: 06/09/2018: - Surgery C/S'd and do not recommend surgical intervention. - Likely 2/2 to severe gastritis seen on EGD. Biopsies pending. Resulting to Dr. Pita YOU. - CT negative for any correlating abnormality in the abdomen or pelvis. - Bladder scan negative for retention of fluid. - UA and labs unremarkable except low K+ (3.3) and elevated bili (1.2). Which should be rechecked in one week by primary. - Counseled regarding no NSAID use. - Continue soft diet, Increase to regular diet as tolerated. - Protonix 40mg daily. - Gas -X QID PRN - Pt states that he gets elevated liver enzymes when he takes tylenol, told to take tramadol when he has pain. (2) HTN, goal below 150/90 Current Visit: Yes Status: Acute Base Code: I10 - ESSENTIAL (PRIMARY) HYPERTENSION Comment: 06/09/18: - Continue home medications as prescribed. (3) Full code status Current Visit: Yes Status: Acute Base Code: Z78.9 - OTHER SPECIFIED HEALTH STATUS Comment: 06/09/18: Patient is full code status this admission. - Disposition Home pending adequate pain control and GI c/s recs. - Hospitalization Course Disposition: Home, Self-Care Hospital Course: PMH: Reflux, Hypertension, Asthma, Sleep Apnea, Migraines, Arthritis, Kidney Stones 06/08/18: Patient is a 62 year old male who presented to the ED complaining of severe acute lower abdominal pain. He described the pain as sudden onset of a sharp, stabbing pain in his lower abdomen a few hours earlier. He also feels his abdomen is somewhat bloated. Patient rates pain as a 9/10 and says that just prior to coming to the ED, the pain was so intense he became diaphoretic and then proceeded to have one episode of syncope. This prompted him to come in. He also states that he was nauseated, although he denies vomiting. Denies constipation or diarrhea. Stool is formed, brown NBNB. Nothing has helped his pain, except laying down which provides some small relief. He has never had an episode like this before. Vitals: WNL upon admission. EKG:RBBB otherwise wnl. Labs: trops neg, CBC wnl, K+ low @ 3.1, bilirubin elevated @ 1.5. UA wnl. Imaging: CT negative for abnormalities except small renal calculi that are non- obstructing. Treated with: IV rehydration, protonix, morphine for pain. Pt required several doses of morphine/dilaudid overnight 2/2 to severe pain which only provided minimal relief. Hospital course, 06/09/18: Patient states that his pain is much better now, currently is 3/10. He states that while the morphine yesterday did not relieve his symptoms, he started to feel better around 4am spontaneously this morning and has continued to improve. He states that he thinks it is possible that his pain was due to trapped gas. He also admits to early satiety for the past few months. States that he has also lost roughly 20 lb's because of the early satiety and decreased appetite. Had colonoscopy last year and found polyps but no other abnormalities. Surgery came to evaluate the pt for intervention and Dr Gilman did not think that would benefit the pt. Dr. Paez from gastroenterology was c/s'd and performed EGD. It was found that the pt had severe gastritis with fundal polyps. Samples for biopsy were collected and Dr. Paez to get result. He recommended that the pt continue a soft diet and PPI outpt. K+ trended up to 3.3 and bilirubin trended down to 1.2. PCP should get repeat labs in one week to see that these levels have normalized. Procedures: Imaging and X-Rays 06/08/18 12:39 ABDOMEN/PELVIS W CONTRAST [CT] Stat Cardiology Procedures 06/08/18 15:44 EKG NOW Abnormal Labs: Abnormal Lab Results 06/08/18 06/09/18 06/09/18 Range/Units 12:12 04:45 04:45 Hct 40.9 L (42.0-52.0) % Lymphocytes % 15.3 L (16-45) % Potassium 3.1 L 3.3 L (3.4-4.5) mmol/L Chloride 92 L 96 L (98-107) mmol/L Carbon Dioxide 30.0 H (22-29) mmol/L BUN 25 H (8-23) mg/dL Creatinine 0.6 L (0.7-1.2) mg/dL Random Glucose 152 H 120 H (74-109) mg/dL Calcium 8.6 L (8.8-10.2) mg/dL Total Bilirubin 1.50 H 1.20 H (0.2-1.0) mg/dL Albumin 3.7 L (4.0-5.0) g/dL Condition at Discharge: (2) Stable VTE Discharge VTE Reason For No Overlap Therapy: Not Indicated Discharge Medications - Discharge Medications Prescriptions: Omeprazole 40 mg PO BID #60 capsule. Potassium Chloride [Klor-Con] 20 meq PO BID #4 tab.prt.sr Simethicone [Mylicon] 80 mg PO TID #90 tab.chew Home Medications: Ambulatory Orders Amlodipine Besylate 5 mg PO DAILY #90 04/17/16 [Last Taken 1 Day Ago ~06/07/18] Ergocalciferol (Vitamin D2) [Vitamin D2] 50,000 cap PO WEEKLY #13 04/17/16 [ Last Taken 1 Day Ago ~06/07/18] Ezetimibe [Zetia] 10 mg PO DAILY #90 04/17/16 [Last Taken 1 Day Ago ~06/07/18] Promethazine HCl [Phenergan] 25 mg PO DAILY #120 04/17/16 [Last Taken 1 Day Ago ~06/07/18] Tramadol HCl 50 mg PO DAILY #30 04/17/16 [Last Taken 1 Day Ago ~06/07/18] Propranolol HCl [Inderal Xl] 80 mg PO DAILY 10/29/17 [Last Taken 1 Day Ago ~02/17] Amlodipine Besylate [Norvasc] 5 mg PO DAILY tab 06/09/18 [Last Taken Unknown] Omeprazole 40 mg PO BID #60 capsule.dr 06/09/18 [Last Taken Unknown] Potassium Chloride [Klor-Con] 20 meq PO BID #4 tab.prt.sr 06/09/18 [Last Taken Unknown] Simethicone [Mylicon] 80 mg PO TID #90 tab.chew 06/09/18 [Last Taken Unknown] Discharge Plan - Discharge Instructions Activity at Discharge: Increase Activity as Tolerated Diet at Discharge: Other (soft diet) Instructions: Abdominal Pain (ED) Additional Instructions: INCREASE omeprazole to 40mg in AM and 40mg before bedtime. special effects makeup artist script. START simethacone (gas-x) up to 3 times daily. special effects makeup artist script. START potassium tablets for the next 2 days to increase level up to normal. FOLLOW UP with Dr. Harris within one week for reassessment. DR. HARRIS should repeat potassium and bilirubin level in one week to see that it has normalized. AVOID any medications that contain ibuprofen, naproxen, or aspirin. USE tramadol if abdominal pain present. Quality Measures - Quality Measures Quality Measures: Documentation of Current Medications in Medical Record, Screening for High Blood Pressure and F/U Documented - Current Medications Quality Measure: Measure #130: Documentation of Current Medications Documentation of Current Medications: <Current Medications Documented/Reviewed> [G8427] - Blood Pressure Screening Quality Measure: Screening for High Blood Pressure and Follow-Up Documented Does Patient Have Any of the Following: Active Dx of HTN Blood Pressure Classification: Pre-Hypertensive BP Reading Systolic Measurement: 115 Diastolic Measurement: 82 Screening for High Blood Pressure: Patient Exclusion, Hx of HTN [G9744] - Elder Abuse Suspicion Index EASI Reference Information: Trevon BREAUX, Lauren C, Lily D, Earl M.Development and validation of a tool to assist physicians identification of elder abuse: The Elder Abuse Suspicion Index (EASI ). Journal of Elder Abuse and Neglect, 2008; 20 (3): 276-300.
--- NOTE | 2018-06-10 09:54 | CT SCAN REPORT ---
EXAM: CT OF THE ABDOMEN AND PELVIS HISTORY: LOWER ABDOMINAL PAIN. TECHNIQUE: CT of the abdomen and pelvis was performed following intravenous contrast administration. Type and amount of contrast are recorded in the medical record. Comparison: None. FINDINGS: Linear scarring is seen at the right lung base. The lung bases are otherwise unremarkable. The liver and spleen are unremarkable. No pancreatic mass or inflammatory change. The bile ducts are not dilated and there are no calcified gallstones. No adrenal lesions seen. There is bilateral renal function. There are three nonobstructing intrarenal calculi on the right and two nonobstructing intrarenal calculi on the left. These all measure 3 mm or less in size. There is a small cyst in the right kidney. There is no hydronephrosis. The kidneys otherwise are unremarkable. No ureteral calculus or ureteral dilatation seen. There are atherosclerotic changes in the abdominal aorta. There is no aneurysm. No periaortic mass or fluid collection. There are no dilated bowel loops. There is no pelvic mass, abscess, or adenopathy. There is no free air or free fluid. The appendix is unremarkable. No evidence for appendicitis. IMPRESSION: 1. NO ACUTE ABDOMINAL OR PELVIC PROCESS IDENTIFIED. 2. BILATERAL NONOBSTRUCTING INTRARENAL CALCULI. 3. A SMALL AREA OF SCARRING AND/OR ATELECTASIS AT THE RIGHT LUNG BASE. JOB NUMBER: [id number] [facility]
--- NOTE | 2018-06-10 13:20 | Medical Records Consult ---
DATE: 06/09/2018 CHIEF COMPLAINT: Abdominal pain. 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 He described it at his suprapubic region without much radiation. He was mildly nauseated at the time and became diaphoretic and decided to come to the emergency department. Workup was done which included laboratory values and a CT scan. He stated he never had experienced this pain before. He states that he has been moving his bowels without difficulty. He underwent a colonoscopy about 2 months ago which showed a polyp. Denies any rectal bleeding or other. CT scan in the ER was essentially negative. This was reviewed both by myself as well as radiology department. There is no information on bowel obstruction. No hernia. This morning he states overall the pain is much better. He describes it as a 2/10 to 3/10. He is passing a large amount of gas and feels much better. He is not nauseated. He is hungry and wants to eat. PAST MEDICAL HISTORY: Significant for hypertension, GERD. PAST SURGICAL HISTORY: Colonoscopy. CURRENT MEDICATIONS: 1. Norvasc. 2. Protonix. 3. Inderal. ALLERGIES: ACETAMINOPHEN, SULFA. SOCIAL HISTORY: He denies any tobacco or alcohol usage. PHYSICAL EXAMINATION: VITAL SIGNS: Stable. He is afebrile. HEART: Regular rate and rhythm. LUNGS: Decreased. ABDOMEN: Soft, obese, nontender, nondistended. He has minimal guarding in the suprapubic region. EXTREMITIES: No trace of edema. LABORATORY DATA: I did review his laboratory values which revealed a white count of 9, potassium 3.1, bilirubin 1.5 up from 1.20 although he does states he has a history of elevated liver enzymes. His urinalysis was negative. IMPRESSION: Abdominal pain, unknown clear etiology. PLAN: Overall, the patient's clinical status is improving. He is not nauseated and he wants to eat. He is passing gas. At this point, I will advance his diet as tolerated, follow him clinically. He needs no surgical intervention at this point. Thank you for this referral. CC: Jai HU
--- NOTE | 2018-06-10 13:30 | Medical Records Consult ---
DATE OF CONSULTATION: 06/09/2018 HISTORY OF PRESENT ILLNESS: The patient is a very pleasant 62-year-old gentleman seen in consultation at the request of his attending physician for evaluation of abdominal pain and early satiety with weight loss. He presented to the emergency department yesterday complaining of severe acute lower abdominal discomfort. He thought he might have been suffering with gas but the pain was so severe it precipitated the emergency room visit. In the emergency room, laboratory was obtained. CT scan was also obtained, both of which were fairly unremarkable. Bilateral small renal calculi were noted that were nonobstructing. He received narcotic analgesics and his pain seemed to slowly resolve. He states now at most the pain is a 2/10 to 3/10 in severity whereas upon admission it was 9/10. The pain did make him somewhat diaphoretic and lightheaded. He states that his stools have been fairly regular. He denied any rectal bleeding. He had a colonoscopy completed in October of last year which revealed 2 adenomatous polyps. He denies any nausea or vomiting. Also of late is a 3-month history of early satiety and approximately 20-pound weight loss. He states that his appetite is diminished as well. PAST MEDICAL HISTORY: Hypertension, chronic gastroesophageal reflux disease with pyrosis well controlled with omeprazole. He denies previous endoscopy. In addition to the above, he suffers with sleep apnea and history of heart disease. The extent is unclear. He also suffers with arthritis. He has been taking Vicoprofen 1 tablet in the evening for arthritis pain and sleep. He has been using Zofran, Protonix, propranolol, and amlodipine as well. ALLERGIES: ACETAMINOPHEN which causes liver enzymes to elevate and SULFA DRUGS which cause an urticarial type reaction. FAMILY HISTORY: Significant for diabetes. SOCIAL HISTORY: He denies tobacco consumption. He drinks alcohol on rare occasion. REVIEW OF SYSTEMS: He did admit to weight loss as noted above. History of cardiac arrhythmia with palpitations. The GI symptoms noted above. PHYSICAL EXAMINATION: GENERAL: At this time, he seems alert and oriented. NECK: Supple. HEART: Regular. LUNGS: Clear. ABDOMEN: Soft. There is some slight tenderness in the left lower quadrant but no rebound, rigidity, or guarding. EXTREMITIES: Free from edema. NEUROLOMUSCULAR: Seems to be grossly unremarkable. LABORATORY DATA: Unremarkable CBC and chemical panel except for a slightly elevated glucose initially of 152 which dropped to 120 today. Bilirubin initially was 1.5 and dropped to 1.2 today. The direct bilirubin was unremarkable. Aminotransferase levels are normal as well. RADIOGRAPHIC DATA: CT scan of the abdomen was reportedly unremarkable except for small renal nonobstructing calculi. IMPRESSION: The patient suffered with an acute episode of severe lower abdominal pain which seems to have essentially resolved at this point. The cause for this is unclear. He had a colonoscopy completed last October and a CT scan completed this admission which failed to demonstrate significant abnormalities. Of additional concern is his history of early satiety with weight loss of approximately 20 pounds over the past 3 months. He does suffer with chronic gastroesophageal reflux disease and takes anti-inflammatory medications in the evening for arthritis. RECOMMENDATIONS: For further evaluation, I would like to proceed with upper endoscopy. I would continue with proton pump inhibitor therapy at this point pending findings. Further recommendations may be forthcoming. Thank you for allowing me to participate in his care. CC: Dr. Jai HU
--- NOTE | 2018-06-10 13:30 | Operative Note ---
DATE OF SURGERY: 06/09/2018 OPERATION: ESOPHAGOGASTRODUODENOSCOPY with multiple biopsies. INDICATION: Early satiety with 20-pound weight loss over the last 3 months, history of lower abdominal pain with an essentially unremarkable CT scan of the abdomen and pelvis. He did have a colonoscopy last year with 2 polyps removed. Upper endoscopy is completed at this time for further evaluation. ANESTHESIA: Intravenous sedation was administered by the department of anesthesiology and included Diprivan titrated to effect. PROCEDURE: Following informed consent from this alert individual, including a discussion of the risks and benefits of the procedure and an opportunity for the patient to ask questions, the patient was in the left lateral decubitus position. The Olympus [id number] video endoscope was inserted into the esophagus without resistance. The proximal esophagus had a normal appearance with normal folds and distensibility. The mid and distal esophagus likewise was free from changes. The squamocolumnar junction approximated the diaphragmatic hiatus. The structure was traversed and the stomach was entered. In the gastric fundus, there were tiny gastric fundal polyps noted. In the body of the stomach, there was fairly intense gastritis with erythema and edema noted. There were no ulcerations or erosions seen. The pylorus was symmetrical and patent. The duodenal bulb, sweep and descending duodenum were examined in a serial fashion and found to be normal. The instrument was then withdrawn back into the body of the stomach where retroflexion accomplished following air insufflation failed to demonstrate any additional changes. The endoscope was then straightened. Multiple biopsies were taken from throughout the stomach to assess for Helicobacter pylori and check histology. After biopsy, endoscope was then withdrawn back through the esophagus and removed from the patient. He tolerated the procedure well and was returned to the recovery area in stable condition. IMPRESSION: 1. Moderate gastritis noted in the body of the stomach. Multiple gastric biopsies taken. 2. Multiple small gastric fundal polyps. 3. Normal esophagus and duodenum. RECOMMENDATION: The patient would like to try eating, and his diet will be advanced. I would maintain him on acid blockade therapy and await the results of biopsy. Further recommendations may be forthcoming. As always, thank you for allowing me to participate in the care of your patient. CC: Dr. Jai HU
== END 2018-06-09 16:45 | disposition home or self-care (01) ==
LOC: ER 11:52 → MEDSURG 15:34
PROVIDERS: ADMIT Internal Medicine; ATTEND Internal Medicine
DX: R10.33 Periumbilical pain (principal); K29.70 Gastritis, unspecified, without bleeding; I10 Essential (primary) hypertension; K21.9 Gastro-esophageal reflux disease without esophagitis; J45.909 Unspecified asthma, uncomplicated; G47.30 Sleep apnea, unspecified; R74.8 Abnormal levels of other serum enzymes; M19.90 Unspecified osteoarthritis, unspecified site; Z87.442 Personal history of urinary calculi
CPT/HCPCS: 43235; 00731; 83605; 82248; 83690 ×2; 85025 ×2; 80076; 80048; 80053; 81003; 84484 ×2; 74177; 93005; 93010; 90686; G0378 ×2; Q9967; J2405; J3010; J1170 ×2; J2270; 96374; 96375; 96376; 99220; 99285; C9113; J3480